=== PATIENT | female | born 1940 | race Caucasian/White ===

== ENCOUNTER 2018-04-13 14:24 | Outpatient (CLI) | payer MEDICARE, BC ==
[2015-09-15 15:32] VITALS: O2SAT 97
== END 2018-04-13 14:25 | disposition home or self-care (01) | DRG 552 ==
LOC: CONVCARE 14:24
PROVIDERS: ATTEND Orthopaedic Surgery
DX: M54.5 Low back pain (principal); M47.816 Spondylosis without myelopathy or radiculopathy, lumbar region
CPT/HCPCS: 72120; 72131; 72170

== ENCOUNTER 2018-05-03 08:52 | Day surgery (SDC) | payer MEDICARE, BC ==
[2018-05-03] MEDS ORDERED: DEXAMETHASONE SOD PHOS PF 10 MG/ML SOL IJ ONE (09:36)
[2018-05-03] MEDS ORDERED: BUPIVACAINE HCL 0.25% MPF 30 ML SOL INFIL ONE (09:37)
[2018-05-03 10:37] VITALS: BP 151/57; PULSE 70; RESP 12; TEMP 97.2; O2SAT 96
== END 2018-05-03 10:42 | disposition home or self-care (01) | DRG 552 ==
LOC: SURG 08:52
PROVIDERS: ATTEND Nurse Anesthetist, Certified Registered
DX: M51.17 Intervertebral disc disorders with radiculopathy, lumbosacral region (principal)
CPT/HCPCS: J1100

== ENCOUNTER 2019-03-27 11:08 | Outpatient (CLI) | payer BC | END 2019-03-27 11:09 | disposition home or self-care (01) | LOC: CONVCARE 11:09 ==